=== PATIENT | female | born 1990 | race Caucasian/White ===

== ENCOUNTER 2016-10-02 08:51 | Emergency (ER) | payer SELFPAY ==
[~2016-10-02] VITALS: Ht 165.1 cm; Wt 95.5 kg
[~2016-10-02 08:51] MED LIST: FLEXERIL 1010 MG/TAB PO; MOTRIN 800800 MG/TAB PO; NORCO 325 MG-51 TAB PO; PERCOCET 325 MG1 TA2 PO; PRENATAL1 TA7 PO; PROFERRIN ES12 MG; TYLENOL 325MG325 MG PO; VALIUM 5MG T5 MG/TAB PO
[2016-10-02 09:39] LABS: INFLUENZA B NEGATIVE
[2016-10-02 09:47] LABS: PH 5 (5-8); URINE APPEARANCE Clear; URINE BACTERIA None Seen /hpf; URINE BILIRUBIN Negative (NEGATIVE); URINE BLOOD Negative (NEGATIVE); URINE COLOR Yellow; URINE GLUCOSE Negative (NEGATIVE); URINE KETONE Negative (NEGATIVE); URINE RBC None Seen /hpf; URINE UROBILINOGEN Negative (NEGATIVE); URINE WBC 0-2 /hpf
[2016-10-02] MEDS ORDERED: PHENERGAN W/CO120 M1 PO (10:20)
[2016-10-02 10:30] VITALS: BP 118/59; PULSE 98; TEMP 99.6
== END 2016-10-02 10:41 | disposition home or self-care (01) ==
LOC: COL.ER 08:51
PROVIDERS: Physician Assistant
DX: J11.1 Influenza due to unidentified influenza virus with other respiratory manifestations (principal); Z87.891 Personal history of nicotine dependence